=== PATIENT | female | born 1945 | race Caucasian/White ===

== ENCOUNTER 2018-01-31 11:27 | Inpatient (IN) ==
[2018-01-31] MEDS ORDERED: ALBUTEROL/IPRATROPIUM 3 ML NEB RESP TX STA (12:19)
[2018-01-31] MEDS ORDERED: methylPREDNISolone SOD SUC 125 MG/2 ML VIAL IV STA (12:19)
[2018-01-31 12:26] LABS: Basophils % 0.5 % (0.0-0.8); Eosinophils % 0.1 % (0.00-10.9); Hematocrit 28.7 VOL% (35.7-47.0); Hemoglobin 9.3 GM/DL (12.0-16.0); Immature Granulocytes % 0.5 %; Immature Granulocytes Absolute 0.04 #; Lymphocytes # 1.4 10*3/uL (1.4-4.0); Lymphocytes % 16.9 % (21.3-54.2); Mean Corpuscular HGB Conc 32.4 GM/DL (32-36); Mean Corpuscular Hemoglobin 28 PG (27-34); Mean Platelet Volume 10.9 FL (9.6-12.0); Monocytes # 0.6 10*3/uL (0.11-0.8); Monocytes % 7.3 % (1.7-12.7); Neutrophils # 6.3 10*3/uL (1.4-7.4); Neutrophils % 74.7 % (38.7-73.9); Platelet Count 251 T/CUMM (130-400); Red Cell Distribution Width 13.2 % (9.3-17.3); White Blood Count 8.4 T/CUMM (4-12)
[2018-01-31 12:39] LABS: Albumin 2.8 G/DL (3.4-5.0); Bilirubin,Total 0.4 MG/DL (0.2-1.0); Calcium 8.9 MG/DL (8.5-10.1); Osmolality,Calculated 289.5 MOS/KG (273-304); Potassium 3.6 MMOL/L (3.5-5.1); Total Protein 7.6 G/DL (6.4-8.3)
[2018-01-31 13:53] LABS: Apearance,Urine Slightly Hazy (Clear); Bacteria,Urine Few /HPF (Few); Bilirubin,Urine Negative (Negative); Blood, Urine Large mg/dL (Negative); Glucose,Urine (UA) Negative (Negative); Hyaline Casts,Urine 6 /LPF (0-3); Ketones,Urine Negative (Negative); Mucus,Urine Occasional /LPF (Occasional); Nitrite,Urine Negative (Negative); Protein,Urine 100 MG/DL; RBC,Urine 96 /HPF (0-4); Squamous Epithelial Cell,Urine Occasional /HPF (0-10); Urine Color Yellow (Yellow); Urine Specific Gravity 1.009 (1.001-1.035); Urine Urobilinogen < 2.0 EU/DL (0.2-1.0); WBC,Urine 18 /HPF (0-6)
[2018-01-31] MEDS ORDERED: CEFEPIME 1,000 MG in SODIUM CHLORIDE 0.9% 100 ML IV STA (14:13)
[2018-01-31] MEDS ORDERED: traMADol 50 MG TABLET PO PRN (14:34)
[2018-01-31] MEDS: SODIUM CHLORIDE 0.45% 1,000 ML IV SCH (16:39)
[2018-01-31] MEDS: AZITHROMYCIN 250 MG TABLET PO SCH (16:40)
[2018-01-31] MEDS: BENZONATATE 100 MG CAPSULE PO SCH ×2 (16:40→20:47)
[2018-01-31] MEDS: methylPREDNISolone SOD SUC 125 MG/2 ML VIAL IV SCH ×2 (16:41→20:47)
[2018-01-31] MEDS: cefTRIAXone 1,000 MG in SYRINGE 1 EACH IV SCH (17:39)
[2018-01-31] MEDS: ALBUTEROL/IPRATROPIUM 3 ML NEB RESP TX SCH (19:56)
[2018-01-31] MEDS: ASCORBIC ACID 500 MG TABLET PO SCH (20:47)
[2018-01-31] MEDS: CARVEDILOL 12.5 MG TABLET PO SCH (20:47)
[2018-02-01] MEDS: ALBUTEROL/IPRATROPIUM 3 ML NEB RESP TX SCH ×4 (00:29→19:41)
[2018-02-01] MEDS: methylPREDNISolone SOD SUC 125 MG/2 ML VIAL IV SCH ×4 (03:45→23:27)
[2018-02-01 05:27] LABS: Basophils % 0.1 % (0.0-0.8); Hemoglobin 7.1 GM/DL (12.0-16.0); Immature Granulocytes % 0.7 %; Immature Granulocytes Absolute 0.05 #; Lymphocytes # 0.8 10*3/uL (1.4-4.0); Lymphocytes % 10.8 % (21.3-54.2); Mean Corpuscular HGB Conc 32.3 GM/DL (32-36); Mean Corpuscular Hemoglobin 28 PG (27-34); Mean Corpuscular Volume 86.6 FL (87-102); Mean Platelet Volume 11.3 FL (9.6-12.0); Monocytes # 0.1 10*3/uL (0.11-0.8); Monocytes % 0.9 % (1.7-12.7); Neutrophils # 6.5 10*3/uL (1.4-7.4); Neutrophils % 87.5 % (38.7-73.9); Platelet Count 237 T/CUMM (130-400); Red Blood Count 2.54 MC/CUMM (3.8-5.5); White Blood Count 7.4 T/CUMM (4-12)
[2018-02-01 06:06] LABS: Albumin 2.3 G/DL (3.4-5.0); Bilirubin,Total 0.5 MG/DL (0.2-1.0); Calcium 8.1 MG/DL (8.5-10.1); Osmolality,Calculated 297.5 MOS/KG (273-304); Potassium 3.9 MMOL/L (3.5-5.1); Total Protein 6.3 G/DL (6.4-8.3)
[2018-02-01] MEDS: SODIUM CHLORIDE 0.45% 1,000 ML IV SCH ×2 (06:25→23:29)
[2018-02-01] MEDS ORDERED: MONTELUKAST 10 MG TABLET PO SCH (09:30)
[2018-02-01] MEDS: amLODIPine 5 MG TABLET PO SCH (09:35)
[2018-02-01] MEDS: POTASSIUM CHLORIDE 8 MEQ CAPSULE PO SCH (09:35)
[2018-02-01] MEDS: BENZONATATE 100 MG CAPSULE PO SCH ×3 (09:35→22:00)
[2018-02-01] MEDS: AZITHROMYCIN 250 MG TABLET PO SCH (09:35)
[2018-02-01] MEDS: ASCORBIC ACID 500 MG TABLET PO SCH ×2 (09:35→22:00)
[2018-02-01] MEDS: FUROSEMIDE 40 MG TABLET PO SCH (09:36)
[2018-02-01] MEDS: ALLOPURINOL 300 MG TABLET PO SCH (09:36)
[2018-02-01] MEDS: CHOLECALCIFEROL 1,000 UNIT TABLET PO SCH (09:38)
[2018-02-01] MEDS: CARVEDILOL 12.5 MG TABLET PO SCH ×2 (09:41→22:00)
[2018-02-01] MEDS: CLINDAMYCIN INJ 300 MG in PREMIX 1 EACH IV SCH ×2 (09:42→18:47)
[2018-02-01] MEDS ORDERED: SODIUM CHLORIDE 0.9% 1,000 ML IV PRN (10:57)
[2018-02-01] MEDS ORDERED: SODIUM CHLORIDE 0.65% NASAL SPRAY 45 ML BOTTLE BOTH NARES PRN (10:58)
[2018-02-01 11:37] LABS: Folate 12.3 NG/ML (5.4-24.0)
[2018-02-01] MEDS: FLECAINIDE 50 MG TABLET PO SCH ×2 (11:51→22:02)
[2018-02-01 12:36] LABS: Hematocrit 23.6 VOL% (35.7-47.0); Hemoglobin 7.7 GM/DL (12.0-16.0)
[2018-02-01] MEDS: cefTRIAXone 1,000 MG in SYRINGE 1 EACH IV SCH (18:49)
[2018-02-01 21:10] LABS: Hematocrit 30.8 VOL% (35.7-47.0); Hemoglobin 10.2 GM/DL (12.0-16.0)
[2018-02-01] MEDS ORDERED: POLYETHYLENE GLYCOL POWDER 17 GM PACK PO PRN (23:08)
[2018-02-01] MEDS ORDERED: DOCUSATE SODIUM 100 MG CAPSULE PO PRN (23:08)
[2018-02-02] MEDS: ALBUTEROL/IPRATROPIUM 3 ML NEB RESP TX SCH ×4 (00:29→19:35)
[2018-02-02] MEDS: CLINDAMYCIN INJ 300 MG in PREMIX 1 EACH IV SCH ×3 (02:08→09:23)
[2018-02-02 05:17] LABS: PT Patient Result 11.2 SECS
[2018-02-02 05:32] LABS: Albumin 2.7 G/DL (3.4-5.0); Bilirubin,Total 0.6 MG/DL (0.2-1.0); Calcium 8.4 MG/DL (8.5-10.1); Osmolality,Calculated 302.4 MOS/KG (273-304); Potassium 3.5 MMOL/L (3.5-5.1); Total Protein 7.2 G/DL (6.4-8.3)
[2018-02-02] MEDS: methylPREDNISolone SOD SUC 125 MG/2 ML VIAL IV SCH ×2 (06:33→17:52)
[2018-02-02 06:40] LABS: Basophils % 0.1 % (0.0-0.8); Hematocrit 33.3 VOL% (35.7-47.0); Hemoglobin 10.8 GM/DL (12.0-16.0); Immature Granulocytes % 0.8 %; Immature Granulocytes Absolute 0.14 #; Lymphocytes # 1.2 10*3/uL (1.4-4.0); Lymphocytes % 6.8 % (21.3-54.2); Mean Corpuscular HGB Conc 32.4 GM/DL (32-36); Mean Corpuscular Hemoglobin 28 PG (27-34); Mean Corpuscular Volume 87.6 FL (87-102); Mean Platelet Volume 11.6 FL (9.6-12.0); Monocytes # 0.2 10*3/uL (0.11-0.8); Monocytes % 0.8 % (1.7-12.7); Neutrophils # 16.7 10*3/uL (1.4-7.4); Neutrophils % 91.5 % (38.7-73.9); Platelet Count 315 T/CUMM (130-400); Red Cell Distribution Width 13.3 % (9.3-17.3); White Blood Count 18.3 T/CUMM (4-12)
[2018-02-02] MEDS: SODIUM CHLORIDE 0.45% 1,000 ML IV SCH ×2 (07:07→15:08)
[2018-02-02 07:13] LABS: Hypochromasia 1+; Lymphocytes 10 % (20-55); Ovalocytes Slight; Platelet Estimate Adequate; Segmented Neutrophils 89 % (50-85); Total Cells Counted 100
[2018-02-02] MEDS: CARVEDILOL 12.5 MG TABLET PO SCH ×2 (09:20→21:28)
[2018-02-02] MEDS: POTASSIUM CHLORIDE 8 MEQ CAPSULE PO SCH (09:21)
[2018-02-02] MEDS: amLODIPine 5 MG TABLET PO SCH (09:21)
[2018-02-02] MEDS: ASCORBIC ACID 500 MG TABLET PO SCH ×2 (09:21→21:28)
[2018-02-02] MEDS: AZITHROMYCIN 250 MG TABLET PO SCH (09:22)
[2018-02-02] MEDS: CHOLECALCIFEROL 1,000 UNIT TABLET PO SCH (09:22)
[2018-02-02] MEDS: BENZONATATE 100 MG CAPSULE PO SCH ×3 (09:22→21:28)
[2018-02-02] MEDS: FLECAINIDE 50 MG TABLET PO SCH (09:22)
[2018-02-02] MEDS: ALLOPURINOL 300 MG TABLET PO SCH (09:22)
[2018-02-02] MEDS: FUROSEMIDE 40 MG TABLET PO SCH (09:23)
[2018-02-02] MEDS: MONTELUKAST 10 MG TABLET PO SCH ×2 (09:23→21:27)
[2018-02-02 13:20] LABS: Myeloperoxidase Antibody > 8.0 U
[2018-02-02] MEDS ORDERED: LACTULOSE 20 GM/30 ML UDCUP PO PRN (14:07)
[2018-02-02] MEDS ORDERED: FUROSEMIDE 40 MG/4 ML VIAL IV ONE (17:11)
[2018-02-02] MEDS: PIPERACILLIN/TAZOBACTAM 3,375 MG in SODIUM CHLORIDE 0.9% 100 ML IV SCH (17:53)
[2018-02-03] MEDS: ALBUTEROL/IPRATROPIUM 3 ML NEB RESP TX SCH ×4 (01:02→19:55)
[2018-02-03] MEDS: methylPREDNISolone SOD SUC 125 MG/2 ML VIAL IV SCH (05:10)
[2018-02-03] MEDS: PIPERACILLIN/TAZOBACTAM 3,375 MG in SODIUM CHLORIDE 0.9% 100 ML IV SCH ×2 (05:11→17:45)
[2018-02-03 05:26] LABS: Basophils % 0.1 % (0.0-0.8); Hematocrit 27.7 VOL% (35.7-47.0); Immature Granulocytes Absolute 0.12 #; Lymphocytes # 0.9 10*3/uL (1.4-4.0); Mean Corpuscular HGB Conc 32.5 GM/DL (32-36); Mean Corpuscular Hemoglobin 29 PG (27-34); Mean Corpuscular Volume 87.9 FL (87-102); Mean Platelet Volume 11.1 FL (9.6-12.0); Monocytes # 0.1 10*3/uL (0.11-0.8); Monocytes % 1.1 % (1.7-12.7); Neutrophils # 10.4 10*3/uL (1.4-7.4); Neutrophils % 89.8 % (38.7-73.9); Platelet Count 257 T/CUMM (130-400); Red Blood Count 3.15 MC/CUMM (3.8-5.5); Red Cell Distribution Width 13.6 % (9.3-17.3); White Blood Count 11.6 T/CUMM (4-12)
[2018-02-03 05:37] LABS: Risk Ratio 4.4; VLDL CHOLESTEROL 17.8 MG/DL
[2018-02-03 05:39] LABS: Albumin 2.3 G/DL (3.4-5.0); Bilirubin,Total 0.7 MG/DL (0.2-1.0); Calcium 8.1 MG/DL (8.5-10.1); Potassium 3.6 MMOL/L (3.5-5.1); Total Protein 6.1 G/DL (6.4-8.3)
[2018-02-03] MEDS: CARVEDILOL 12.5 MG TABLET PO SCH ×2 (12:57→21:03)
[2018-02-03] MEDS: ALLOPURINOL 300 MG TABLET PO SCH (12:58)
[2018-02-03] MEDS: amLODIPine 5 MG TABLET PO SCH (12:58)
[2018-02-03] MEDS: MONTELUKAST 10 MG TABLET PO SCH ×2 (12:58→21:03)
[2018-02-03] MEDS: ASCORBIC ACID 500 MG TABLET PO SCH ×2 (12:58→21:03)
[2018-02-03] MEDS: POTASSIUM CHLORIDE 8 MEQ CAPSULE PO SCH (12:58)
[2018-02-03] MEDS: CHOLECALCIFEROL 1,000 UNIT TABLET PO SCH (12:58)
[2018-02-03] MEDS: BENZONATATE 100 MG CAPSULE PO SCH ×3 (12:58→21:03)
[2018-02-03 15:07] LABS: Q Fever Phase II IgM <1:16 (<1:16)
[2018-02-03] MEDS ORDERED: methylPREDNISolone SOD SUC 40 MG/1 ML VIAL IM SCH (15:30)
[2018-02-03] MEDS: methylPREDNISolone SOD SUC 40 MG/1 ML VIAL IV SCH (16:13)
[2018-02-03 19:05] LABS: TB2 Ag Minus Result 0.01 IU/mL
[2018-02-03] MEDS: PANTOPRAZOLE 40 MG VIAL IV SCH (21:04)
[2018-02-04] MEDS: ALBUTEROL/IPRATROPIUM 3 ML NEB RESP TX SCH ×4 (00:40→19:26)
[2018-02-04] MEDS: methylPREDNISolone SOD SUC 40 MG/1 ML VIAL IV SCH ×2 (05:28→17:53)
[2018-02-04] MEDS: PIPERACILLIN/TAZOBACTAM 3,375 MG in SODIUM CHLORIDE 0.9% 100 ML IV SCH (05:35)
[2018-02-04 05:47] LABS: Basophils % 0.1 % (0.0-0.8); Hematocrit 29.7 VOL% (35.7-47.0); Hemoglobin 9.6 GM/DL (12.0-16.0); Immature Granulocytes % 1.6 %; Immature Granulocytes Absolute 0.14 #; Lymphocytes # 1.1 10*3/uL (1.4-4.0); Lymphocytes % 12.6 % (21.3-54.2); Mean Corpuscular HGB Conc 32.3 GM/DL (32-36); Mean Corpuscular Hemoglobin 28 PG (27-34); Mean Corpuscular Volume 87.6 FL (87-102); Mean Platelet Volume 10.8 FL (9.6-12.0); Monocytes # 0.3 10*3/uL (0.11-0.8); Monocytes % 2.8 % (1.7-12.7); Neutrophils # 7.4 10*3/uL (1.4-7.4); Neutrophils % 82.9 % (38.7-73.9); Platelet Count 268 T/CUMM (130-400); Red Blood Count 3.39 MC/CUMM (3.8-5.5); Red Cell Distribution Width 13.4 % (9.3-17.3); White Blood Count 8.9 T/CUMM (4-12)
[2018-02-04 06:10] LABS: Albumin 2.3 G/DL (3.4-5.0); Bilirubin,Total 0.6 MG/DL (0.2-1.0); Potassium 3.5 MMOL/L (3.5-5.1); Total Protein 5.8 G/DL (6.4-8.3)
[2018-02-04] MEDS: PANTOPRAZOLE 40 MG VIAL IV SCH ×2 (09:41→21:50)
[2018-02-04] MEDS: ALLOPURINOL 300 MG TABLET PO SCH (09:43)
[2018-02-04] MEDS: ASCORBIC ACID 500 MG TABLET PO SCH ×2 (09:43→21:51)
[2018-02-04] MEDS: CARVEDILOL 12.5 MG TABLET PO SCH ×2 (09:43→21:51)
[2018-02-04] MEDS: POTASSIUM CHLORIDE 8 MEQ CAPSULE PO SCH (09:43)
[2018-02-04] MEDS: MONTELUKAST 10 MG TABLET PO SCH ×2 (09:43→21:51)
[2018-02-04] MEDS: amLODIPine 10 MG TABLET PO SCH (09:43)
[2018-02-04] MEDS: BENZONATATE 100 MG CAPSULE PO SCH ×3 (09:43→21:51)
[2018-02-04] MEDS: CHOLECALCIFEROL 1,000 UNIT TABLET PO SCH (09:43)
[2018-02-05] MEDS: ALBUTEROL/IPRATROPIUM 3 ML NEB RESP TX SCH ×2 (00:29→07:10)
[2018-02-05] MEDS: methylPREDNISolone SOD SUC 40 MG/1 ML VIAL IV SCH (03:44)
[2018-02-05 05:25] LABS: Basophils % 0.1 % (0.0-0.8); Hematocrit 31.6 VOL% (35.7-47.0); Hemoglobin 10.2 GM/DL (12.0-16.0); Immature Granulocytes % 2.2 %; Immature Granulocytes Absolute 0.22 #; Lymphocytes # 0.9 10*3/uL (1.4-4.0); Lymphocytes % 8.9 % (21.3-54.2); Mean Corpuscular HGB Conc 32.3 GM/DL (32-36); Mean Corpuscular Hemoglobin 28 PG (27-34); Mean Corpuscular Volume 86.1 FL (87-102); Mean Platelet Volume 10.8 FL (9.6-12.0); Monocytes # 0.2 10*3/uL (0.11-0.8); Neutrophils # 8.7 10*3/uL (1.4-7.4); Neutrophils % 86.8 % (38.7-73.9); Platelet Count 299 T/CUMM (130-400); Red Blood Count 3.67 MC/CUMM (3.8-5.5); Red Cell Distribution Width 13.4 % (9.3-17.3); White Blood Count 10.1 T/CUMM (4-12)
[2018-02-05 05:54] LABS: Calcium 8.4 MG/DL (8.5-10.1); Potassium 3.6 MMOL/L (3.5-5.1)
[2018-02-05 06:10] LABS: Albumin 2.5 G/DL (3.4-5.0); Bilirubin,Total 0.6 MG/DL (0.2-1.0); Calcium 8.5 MG/DL (8.5-10.1); Osmolality,Calculated 309.8 MOS/KG (273-304); Potassium 3.6 MMOL/L (3.5-5.1); Total Protein 6.2 G/DL (6.4-8.3)
[2018-02-05] MEDS ORDERED: AMIODARONE 200 MG TABLET PO SCH (09:00)
[2018-02-05] MEDS: PANTOPRAZOLE 40 MG VIAL IV SCH (09:06)
[2018-02-05] MEDS: CARVEDILOL 12.5 MG TABLET PO SCH (09:07)
[2018-02-05] MEDS: ASCORBIC ACID 500 MG TABLET PO SCH (09:08)
[2018-02-05] MEDS: POTASSIUM CHLORIDE 8 MEQ CAPSULE PO SCH (09:08)
[2018-02-05] MEDS: BENZONATATE 100 MG CAPSULE PO SCH (09:08)
[2018-02-05] MEDS: amLODIPine 10 MG TABLET PO SCH (09:08)
[2018-02-05] MEDS: MONTELUKAST 10 MG TABLET PO SCH (09:08)
[2018-02-05] MEDS: ALLOPURINOL 300 MG TABLET PO SCH (09:09)
[2018-02-05] MEDS: CHOLECALCIFEROL 1,000 UNIT TABLET PO SCH (09:09)
[2018-02-05] MEDS: PIPERACILLIN/TAZOBACTAM 3,375 MG in SODIUM CHLORIDE 0.9% 100 ML IV SCH (09:11)
[2018-02-05] MEDS ORDERED: ALBUTEROL/IPRATROPIUM 3 ML NEB RESP TX PRN (09:52)
[2018-02-05] MEDS ORDERED: DORNASE ALFA 2.5 MG/2.5 ML VIAL RESP TX SCH (10:00)
[2018-02-05] MEDS ORDERED: PANTOPRAZOLE 40 MG TABLET PO SCH (21:00)
[2018-02-05 21:29] VITALS: BP 165/67
[2018-02-10 11:55] LABS: c-ANCA Negative (Negative); p-ANCA Positive (Negative)
== END 2018-02-05 14:00 | disposition home or self-care (01) | DRG 178 ==
LOC: N.ED 11:27 → N.EDINP 14:49 → SUATTDRO 14:49 → N.EDINP 15:48 → N.3E 16:23
PROVIDERS: ADMIT Internal Medicine Infectious Disease; ATTEND Internal Medicine

== ENCOUNTER 2020-08-27 09:43 | Inpatient (IN) ==
[2020-08-27] MEDS ORDERED: SODIUM CHLORIDE 0.9% 1,000 ML IV STA (11:21)
[2020-08-27 11:45] LABS: Basophils % 0.1 % (0.0-0.8); Hematocrit 33.8 VOL% (35.7-47.0); Hemoglobin 10.7 GM/DL (12.0-16.0); Immature Granulocytes % 2.4 %; Immature Granulocytes Absolute 0.25 #; Lymphocytes # 0.4 10*3/uL (1.4-4.0); Mean Corpuscular HGB Conc 31.7 GM/DL (32-36); Mean Corpuscular Volume 94.7 FL (87-102); Mean Platelet Volume 10.8 FL (9.6-12.0); Neutrophils % 82.5 % (38.7-73.9); Platelet Count 190 T/CUMM (130-400); Red Blood Count 3.57 MC/CUMM (3.8-5.5); Red Cell Distribution Width 13.3 % (9.3-17.3); White Blood Count 10.6 T/CUMM (4-12)
[2020-08-27 12:04] LABS: Lymphocytes 6 % (20-55); Segmented Neutrophils 82 % (50-85); Total Cells Counted 100
[2020-08-27 12:05] LABS: Hypochromasia 1+; Microcytosis 1+; Platelet Estimate Adequate
[2020-08-27 12:11] LABS: Albumin 3.4 G/DL (3.4-5.0); Bilirubin,Total 0.9 MG/DL (0.2-1.0); Calcium 9.2 MG/DL (8.5-10.1); Osmolality,Calculated 286.1 MOS/KG (273-304); Potassium 2.6 MMOL/L (3.5-5.1); Total Protein 7.7 G/DL (6.4-8.2)
[2020-08-27] MEDS ORDERED: POTASSIUM CHLORIDE 20 MEQ TABLET PO STA (14:06)
[2020-08-27] MEDS ORDERED: ONDANSETRON 4 MG/2 ML VIAL IV PRN (14:51)
[2020-08-27] MEDS ORDERED: DEXTROSE 50% 25 GM/50 ML VIAL IV PRN (14:51)
[2020-08-27] MEDS ORDERED: GLUCAGON 1 MG VIAL IM PRN (14:51)
[2020-08-27] MEDS ORDERED: HEPARIN 5,000 UNIT/1 ML VIAL SUBCUT SCH (15:00)
[2020-08-27] MEDS: SODIUM CHLORIDE 0.9% 1,000 ML IV SCH (15:45)
[2020-08-27] MEDS ORDERED: MAGNESIUM SULF RIDER 2 GM/50 ML PREMIX IV PRN (16:53)
[2020-08-27] MEDS ORDERED: MAGNESIUM SULF RIDER 4 GM/100 ML PREMIX IV PRN (16:53)
[2020-08-27] MEDS: APIXABAN 2.5 MG TABLET PO SCH (21:09)
[2020-08-27] MEDS: carvediloL 12.5 MG TABLET PO SCH (21:09)
[2020-08-27] MEDS: BUDESONIDE/FORMOTEROL 160-4.5 INHALER 6 GM INH SCH (21:16)
[2020-08-28 06:09] LABS: Alanine Aminotransferase 15 U/L (13-56); Albumin 2.6 G/DL (3.4-5.0); Alkaline Phosphatase 61 U/L (45-117); Aspartate Amino Transferase 22 U/L (0-37); Bilirubin,Total < 0.39 MG/DL (0.2-1.0); Blood Urea Nitrogen 59 MG/DL (7-18); Calcium 8.4 MG/DL (8.5-10.1); Carbon Dioxide 15 MMOL/L (21-32); Estimated Glom Filtration Rate 8 ML/MIN; Glucose 89 MG/DL (74-106); Osmolality,Calculated 292.5 MOS/KG (273-304); Potassium 2.7 MMOL/L (3.5-5.1); Sodium 139 MMOL/L (136-145); Total Protein 6.1 G/DL (6.4-8.2)
[2020-08-28 06:29] LABS: Basophils % 0.3 % (0.0-0.8); Eosinophils % 0.1 % (0.00-10.9); Hematocrit 29.7 VOL% (35.7-47.0); Hemoglobin 9.1 GM/DL (12.0-16.0); Immature Granulocytes % 1.1 %; Immature Granulocytes Absolute 0.08 #; Lymphocytes # 0.6 10*3/uL (1.4-4.0); Lymphocytes % 7.4 % (21.3-54.2); Mean Corpuscular HGB Conc 30.6 GM/DL (32-36); Mean Corpuscular Volume 97.7 FL (87-102); Monocytes % 20.2 % (1.7-12.7); Neutrophils % 70.9 % (38.7-73.9); Platelet Count 146 T/CUMM (130-400); Red Blood Count 3.04 MC/CUMM (3.8-5.5); Red Cell Distribution Width 13.4 % (9.3-17.3); White Blood Count 7.4 T/CUMM (4-12)
[2020-08-28 07:02] LABS: Band Neutrophils 1 % (0-10); Lymphocytes 10 % (20-55); Segmented Neutrophils 78 % (50-85); Total Cells Counted 100
[2020-08-28 07:03] LABS: Hypochromasia 1+; Microcytosis 1+; Platelet Estimate Adequate
[2020-08-28 07:40] LABS: Thyroid Stimulating Hormone 0.427 uIU/ml (0.358-3.74)
[2020-08-28] MEDS: carvediloL 12.5 MG TABLET PO SCH ×2 (09:04→20:47)
[2020-08-28] MEDS: amLODIPine 5 MG TABLET PO SCH (09:04)
[2020-08-28] MEDS: APIXABAN 2.5 MG TABLET PO SCH ×2 (09:04→20:47)
[2020-08-28] MEDS: BUDESONIDE/FORMOTEROL 160-4.5 INHALER 6 GM INH SCH ×3 (09:04→20:57)
[2020-08-28] MEDS: PANTOPRAZOLE 40 MG TABLET PO SCH (09:04)
[2020-08-28] MEDS: POTASSIUM CHLORIDE RIDER 10 MEQ/100 ML PREMIX IV PRN ×3 (10:54→14:43)
[2020-08-28] MEDS: SODIUM CHLORIDE 0.9% 1,000 ML IV SCH (11:10)
[2020-08-28] MEDS: POTASSIUM CHLORIDE 20 MEQ TABLET PO PRN (20:48)
[2020-08-28] MEDS: POTASSIUM CHLORIDE 20 MEQ TABLET PO SCH (20:57)
[2020-08-29] MEDS: POTASSIUM CHLORIDE 20 MEQ TABLET PO SCH ×2 (04:06→13:29)
[2020-08-29 06:14] LABS: Eosinophils % 0.2 % (0.00-10.9); Hematocrit 26.7 VOL% (35.7-47.0); Hemoglobin 8.4 GM/DL (12.0-16.0); Immature Granulocytes % 1.5 %; Immature Granulocytes Absolute 0.08 #; Lymphocytes # 0.5 10*3/uL (1.4-4.0); Lymphocytes % 9.9 % (21.3-54.2); Mean Corpuscular HGB Conc 31.5 GM/DL (32-36); Mean Corpuscular Volume 96.4 FL (87-102); Mean Platelet Volume 10.9 FL (9.6-12.0); Neutrophils % 65.4 % (38.7-73.9); Platelet Count 150 T/CUMM (130-400); Red Blood Count 2.77 MC/CUMM (3.8-5.5); Red Cell Distribution Width 13.2 % (9.3-17.3); White Blood Count 5.3 T/CUMM (4-12)
[2020-08-29 06:31] LABS: Calcium 8.1 MG/DL (8.5-10.1); Osmolality,Calculated 285.1 MOS/KG (273-304); Potassium 3.2 MMOL/L (3.5-5.1)
[2020-08-29 06:39] LABS: Hypochromasia 1+; Lymphocytes 14 % (20-55); Microcytosis 1+; Platelet Estimate Adequate; Segmented Neutrophils 70 % (50-85); Total Cells Counted 100
[2020-08-29] MEDS: PANTOPRAZOLE 40 MG TABLET PO SCH (08:45)
[2020-08-29] MEDS: carvediloL 12.5 MG TABLET PO SCH ×2 (08:45→21:18)
[2020-08-29] MEDS: BUDESONIDE/FORMOTEROL 160-4.5 INHALER 6 GM INH SCH ×2 (08:45→21:15)
[2020-08-29] MEDS: APIXABAN 2.5 MG TABLET PO SCH ×2 (08:45→21:13)
[2020-08-29] MEDS: SODIUM CHLORIDE 0.9% 1,000 ML IV SCH ×2 (08:48→13:29)
[2020-08-29] MEDS: amLODIPine 5 MG TABLET PO SCH (08:48)
[2020-08-29] MEDS ORDERED: DIPHENOXYLATE/ATROPINE 2.5-0.025 MG TABLET PO PRN (13:10)
[2020-08-29] MEDS ORDERED: PANTOPRAZOLE 40 MG TABLET PO SCH (15:30)
[2020-08-29] MEDS: predniSONE 5 MG TABLET PO SCH (16:53)
[2020-08-29] MEDS: POTASSIUM CHLORIDE 20 MEQ TABLET PO PRN ×2 (21:12→23:14)
[2020-08-29] MEDS: METHOCARBAMOL 500 MG TABLET PO SCH (21:13)
[2020-08-29] MEDS: MYCOPHENOLATE MOFETIL 250 MG CAPSULE PO SCH (21:13)
[2020-08-29] MEDS: metroNIDAZOLE INJ 500 MG/100 ML PREMIX IV SCH (21:14)
[2020-08-30] MEDS: POTASSIUM CHLORIDE 20 MEQ TABLET PO PRN (02:07)
[2020-08-30] MEDS: metroNIDAZOLE INJ 500 MG/100 ML PREMIX IV SCH ×3 (03:40→21:17)
[2020-08-30 05:18] LABS: Basophils % 0.2 % (0.0-0.8); Hematocrit 25.6 VOL% (35.7-47.0); Hemoglobin 8.2 GM/DL (12.0-16.0); Immature Granulocytes % 1.6 %; Immature Granulocytes Absolute 0.08 #; Lymphocytes # 0.6 10*3/uL (1.4-4.0); Lymphocytes % 11.5 % (21.3-54.2); Mean Corpuscular Volume 96.6 FL (87-102); Mean Platelet Volume 11.5 FL (9.6-12.0); Monocytes % 19.1 % (1.7-12.7); Neutrophils % 67.6 % (38.7-73.9); Platelet Count 153 T/CUMM (130-400); Red Blood Count 2.65 MC/CUMM (3.8-5.5); Red Cell Distribution Width 13.5 % (9.3-17.3); White Blood Count 4.9 T/CUMM (4-12)
[2020-08-30 05:43] LABS: Hypochromasia 1+; Lymphocytes 5 % (20-55); Microcytosis 1+; Ovalocytes Slight; Platelet Estimate Adequate; Segmented Neutrophils 80 % (50-85); Total Cells Counted 100
[2020-08-30 06:03] LABS: Albumin 2.7 G/DL (3.4-5.0); Bilirubin,Total 0.4 MG/DL (0.2-1.0); Calcium 8.1 MG/DL (8.5-10.1); Osmolality,Calculated 280.7 MOS/KG (273-304)
[2020-08-30] MEDS: SODIUM CHLORIDE 0.9% 1,000 ML IV SCH (06:50)
[2020-08-30] MEDS: MYCOPHENOLATE MOFETIL 250 MG CAPSULE PO SCH ×2 (08:56→21:16)
[2020-08-30] MEDS: carvediloL 12.5 MG TABLET PO SCH ×2 (08:56→21:16)
[2020-08-30] MEDS: PANTOPRAZOLE 40 MG TABLET PO SCH (08:57)
[2020-08-30] MEDS: amLODIPine 5 MG TABLET PO SCH (08:57)
[2020-08-30] MEDS: METHOCARBAMOL 500 MG TABLET PO SCH ×2 (08:57→21:16)
[2020-08-30] MEDS: predniSONE 5 MG TABLET PO SCH (08:57)
[2020-08-30] MEDS: APIXABAN 2.5 MG TABLET PO SCH ×2 (08:57→21:16)
[2020-08-30] MEDS: BUDESONIDE/FORMOTEROL 160-4.5 INHALER 6 GM INH SCH ×2 (09:18→21:18)
[2020-08-30] MEDS ORDERED: propofoL 200 MG/20 ML VIAL IV ONE (12:58)
[2020-08-30] MEDS ORDERED: LIDOCAINE 2% 5 ML VIAL ONE (12:58)
[2020-08-31] MEDS: metroNIDAZOLE INJ 500 MG/100 ML PREMIX IV SCH ×3 (04:28→21:02)
[2020-08-31] MEDS: SODIUM CHLORIDE 0.9% 1,000 ML IV SCH ×2 (04:41→19:02)
[2020-08-31 05:38] LABS: Basophils % 0.2 % (0.0-0.8); Eosinophils % 0.3 % (0.00-10.9); Hematocrit 22.8 VOL% (35.7-47.0); Hemoglobin 6.9 GM/DL (12.0-16.0); Immature Granulocytes % 6.5 %; Immature Granulocytes Absolute 0.42 #; Lymphocytes # 0.7 10*3/uL (1.4-4.0); Lymphocytes % 10.2 % (21.3-54.2); Mean Corpuscular HGB Conc 30.3 GM/DL (32-36); Mean Corpuscular Volume 98.3 FL (87-102); Mean Platelet Volume 10.7 FL (9.6-12.0); Monocytes % 16.4 % (1.7-12.7); Neutrophils % 66.4 % (38.7-73.9); Platelet Count 146 T/CUMM (130-400); Red Blood Count 2.32 MC/CUMM (3.8-5.5); Red Cell Distribution Width 13.6 % (9.3-17.3); White Blood Count 6.5 T/CUMM (4-12)
[2020-08-31 06:11] LABS: Albumin 2.4 G/DL (3.4-5.0); Bilirubin,Total 0.5 MG/DL (0.2-1.0); Calcium 8.3 MG/DL (8.5-10.1); Potassium 3.4 MMOL/L (3.5-5.1); Total Protein 5.4 G/DL (6.4-8.2)
[2020-08-31 06:28] LABS: Anisocytosis 1+; Band Neutrophils 8 % (0-10); Eosinophils 1 % (0-10); Lymphocytes 9 % (20-55); Platelet Estimate Adequate; Segmented Neutrophils 72 % (50-85); Tear Drop Cells Few; Total Cells Counted 100
[2020-08-31 09:08] LABS: Hematocrit 25.4 VOL% (35.7-47.0); Hemoglobin 7.5 GM/DL (12.0-16.0)
[2020-08-31] MEDS: MYCOPHENOLATE MOFETIL 250 MG CAPSULE PO SCH ×2 (09:41→21:01)
[2020-08-31] MEDS: predniSONE 5 MG TABLET PO SCH (09:42)
[2020-08-31] MEDS: PANTOPRAZOLE 40 MG TABLET PO SCH (09:43)
[2020-08-31] MEDS: POTASSIUM CHLORIDE 20 MEQ TABLET PO PRN ×3 (09:43→18:03)
[2020-08-31] MEDS: APIXABAN 2.5 MG TABLET PO SCH ×2 (09:44→20:52)
[2020-08-31] MEDS: METHOCARBAMOL 500 MG TABLET PO SCH ×2 (09:44→20:54)
[2020-08-31] MEDS: carvediloL 12.5 MG TABLET PO SCH ×2 (09:44→20:54)
[2020-08-31] MEDS: BUDESONIDE/FORMOTEROL 160-4.5 INHALER 6 GM INH SCH (09:44)
[2020-08-31] MEDS: amLODIPine 5 MG TABLET PO SCH (09:44)
[2020-08-31] MEDS ORDERED: SODIUM CHLORIDE 0.9% 1,000 ML IV PRN (10:42)
[2020-08-31] MEDS: CIPROFLOXACIN 500 MG TABLET PO SCH (20:53)
[2020-08-31] MEDS ORDERED: ACETAMINOPHEN 325 MG TABLET PO PRN (21:37)
[2020-09-01] MEDS: metroNIDAZOLE INJ 500 MG/100 ML PREMIX IV SCH ×3 (05:36→21:05)
[2020-09-01 07:04] LABS: Basophils % 0.3 % (0.0-0.8); Eosinophils # 0.1 10*3/uL (0.0-0.87); Eosinophils % 0.8 % (0.00-10.9); Hematocrit 30.8 VOL% (35.7-47.0); Hemoglobin 9.3 GM/DL (12.0-16.0); Immature Granulocytes % 1.5 %; Lymphocytes # 0.8 10*3/uL (1.4-4.0); Lymphocytes % 12.4 % (21.3-54.2); Mean Corpuscular HGB Conc 30.2 GM/DL (32-36); Mean Corpuscular Volume 98.1 FL (87-102); Mean Platelet Volume 10.7 FL (9.6-12.0); Monocytes % 21.2 % (1.7-12.7); Neutrophils % 63.8 % (38.7-73.9); Platelet Count 170 T/CUMM (130-400); Red Blood Count 3.14 MC/CUMM (3.8-5.5); Red Cell Distribution Width 14.5 % (9.3-17.3); White Blood Count 6.5 T/CUMM (4-12)
[2020-09-01 07:23] LABS: Albumin 2.7 G/DL (3.4-5.0); Bilirubin,Total 0.5 MG/DL (0.2-1.0); Calcium 8.4 MG/DL (8.5-10.1); Osmolality,Calculated 278.5 MOS/KG (273-304); Potassium 3.4 MMOL/L (3.5-5.1); Total Protein 6.3 G/DL (6.4-8.2)
[2020-09-01 07:39] LABS: Lymphocytes 9 % (20-55); Segmented Neutrophils 80 % (50-85); Total Cells Counted 100
[2020-09-01 07:40] LABS: Platelet Estimate Normal
[2020-09-01] MEDS: MYCOPHENOLATE MOFETIL 250 MG CAPSULE PO SCH ×2 (08:25→21:09)
[2020-09-01] MEDS: predniSONE 5 MG TABLET PO SCH (08:26)
[2020-09-01] MEDS: BUDESONIDE/FORMOTEROL 160-4.5 INHALER 6 GM INH SCH ×3 (10:33→21:10)
[2020-09-01] MEDS: carvediloL 12.5 MG TABLET PO SCH ×2 (11:58→21:04)
[2020-09-01] MEDS: METHOCARBAMOL 500 MG TABLET PO SCH ×2 (11:58→21:04)
[2020-09-01] MEDS: APIXABAN 2.5 MG TABLET PO SCH ×2 (11:58→21:04)
[2020-09-01] MEDS: CIPROFLOXACIN 500 MG TABLET PO SCH ×2 (11:59→21:04)
[2020-09-01] MEDS: amLODIPine 5 MG TABLET PO SCH (11:59)
[2020-09-01] MEDS: PANTOPRAZOLE 40 MG TABLET PO SCH (11:59)
[2020-09-01 14:18] LABS: Bacteria,Urine Many /HPF (Few); Bilirubin,Urine Negative (Negative); Blood, Urine Small mg/dL (Negative); Glucose,Urine (UA) Negative (Negative); Hyaline Casts,Urine 10 /LPF (0-3); Ketones,Urine Negative (Negative); Mucus,Urine Few /LPF (Occasional); Nitrite,Urine Negative (Negative); Protein,Urine 30 MG/DL; RBC,Urine 3 /HPF (0-4); Squamous Epithelial Cell,Urine Many /HPF (0-10); Urine Appearance CLOUDY (Clear); Urine Color Amber (Yellow); Urine Specific Gravity 1.021 (1.001-1.035); Urine Urobilinogen < 2.0 EU/DL (0.2-1.0)
[2020-09-02] MEDS: metroNIDAZOLE INJ 500 MG/100 ML PREMIX IV SCH (04:36)
[2020-09-02 07:32] LABS: Basophils % 0.2 % (0.0-0.8); Eosinophils % 0.7 % (0.00-10.9); Hematocrit 27.9 VOL% (35.7-47.0); Hemoglobin 8.6 GM/DL (12.0-16.0); Immature Granulocytes % 2.1 %; Immature Granulocytes Absolute 0.12 #; Lymphocytes # 0.7 10*3/uL (1.4-4.0); Lymphocytes % 11.8 % (21.3-54.2); Mean Corpuscular HGB Conc 30.8 GM/DL (32-36); Mean Corpuscular Volume 95.5 FL (87-102); Mean Platelet Volume 11.1 FL (9.6-12.0); Neutrophils % 65.2 % (38.7-73.9); Platelet Count 167 T/CUMM (130-400); Red Blood Count 2.92 MC/CUMM (3.8-5.5); Red Cell Distribution Width 14.2 % (9.3-17.3); White Blood Count 5.7 T/CUMM (4-12)
[2020-09-02 07:49] LABS: Calcium 8.4 MG/DL (8.5-10.1); Osmolality,Calculated 280.4 MOS/KG (273-304); Potassium 3.4 MMOL/L (3.5-5.1)
[2020-09-02 08:05] LABS: Eosinophils 1 % (0-10); Hypochromasia Slight; Lymphocytes 15 % (20-55); Microcytosis Slight; Platelet Estimate Adequate; Segmented Neutrophils 72 % (50-85); Total Cells Counted 100
[2020-09-02] MEDS: MYCOPHENOLATE MOFETIL 250 MG CAPSULE PO SCH (08:32)
[2020-09-02] MEDS: predniSONE 5 MG TABLET PO SCH (08:32)
[2020-09-02] MEDS: CIPROFLOXACIN 500 MG TABLET PO SCH (08:56)
[2020-09-02] MEDS: APIXABAN 2.5 MG TABLET PO SCH (08:56)
[2020-09-02] MEDS: PANTOPRAZOLE 40 MG TABLET PO SCH (08:57)
[2020-09-02] MEDS: carvediloL 12.5 MG TABLET PO SCH (08:57)
[2020-09-02] MEDS: amLODIPine 5 MG TABLET PO SCH (08:57)
[2020-09-02] MEDS: BUDESONIDE/FORMOTEROL 160-4.5 INHALER 6 GM INH SCH (08:57)
[2020-09-02] MEDS: METHOCARBAMOL 500 MG TABLET PO SCH (09:01)
[2020-09-02 09:33] VITALS: BP 112/64
[2020-09-02] MEDS ORDERED: PHENAZOPYRIDINE 95 MG TABLET PO SCH (09:46)
== END 2020-09-02 11:47 | disposition home or self-care (01) | DRG 371 ==
LOC: N.ED 09:43 → N.EDINP 09:43 → SUATTDRO 15:10 → N.5E 15:27
PROVIDERS: ADMIT Internal Medicine; ATTEND Internal Medicine